=== PATIENT | male | born 1970 | race African-American/Black ===

== ENCOUNTER 2020-10-01 10:52 | Emergency (ER) | payer MEDICAID ==
[~2020-10-01] VITALS: Ht 170.2 cm; Wt 91.8 kg
[2020-10-01] MEDS ORDERED: AMOXICILLIN 50500 MG PO (11:21)
[2020-10-01] MEDS ORDERED: NORCO 325 MG-51 TAB PO (11:21)
[2020-10-01 11:31] VITALS: BP 134/82; PULSE 80; TEMP 98.3
== END 2020-10-01 11:31 | disposition home or self-care (01) ==
LOC: COL.ER 10:52
DX: K08.89 Other specified disorders of teeth and supporting structures (principal)

== ENCOUNTER 2020-10-09 15:56 | Emergency (ER) | payer MEDICAID ==
[~2020-10-09] VITALS: Ht 170.2 cm; Wt 91.4 kg
[~2020-10-09 15:56] MED LIST: AMOXICILLIN 50500 MG PO; NORCO 325 MG-51 TAB PO
[2020-10-09 16:01] VITALS: BP 131/87; PULSE 87; TEMP 97.3
[2020-10-09] MEDS ORDERED: TYLENOL 325MG325 MG PO (16:43)
[2020-10-09] MEDS ORDERED: ROXICODONE 55 MG/TAB PO (16:43)
[2020-10-09] MEDS ORDERED: MOTRIN 400400 MG/TAB PO (16:43)
== END 2020-10-09 16:54 | disposition home or self-care (01) ==
LOC: COL.ER 15:56
DX: K08.89 Other specified disorders of teeth and supporting structures (principal)

== ENCOUNTER 2020-12-13 11:03 | Emergency (ER) | payer MEDICAID ==
[~2020-12-13] VITALS: Ht 167.6 cm; Wt 90.9 kg
[~2020-12-13 11:03] MED LIST changes: +MOTRIN 400400 MG/TAB PO; +ROXICODONE 55 MG/TAB PO; +TYLENOL 325MG325 MG PO
[2020-12-13 11:14] VITALS: BP 121/82; TEMP 97.9
[2020-12-13] MEDS ORDERED: NORCO 325 MG-51 TAB PO (11:37)
[2020-12-13 11:58] VITALS: PULSE 78
== END 2020-12-13 11:58 | disposition home or self-care (01) ==
LOC: COL.ER 11:03
DX: M25.572 Pain in left ankle and joints of left foot (principal); G89.29 Other chronic pain; M94.0 Chondrocostal junction syndrome [Tietze]

== ENCOUNTER 2021-02-18 13:52 | Emergency (ER) | payer MEDICAID ==
[~2021-02-18] VITALS: Ht 167.6 cm; Wt 90.9 kg
[2021-02-18 14:04] VITALS: TEMP 98.7
[2021-02-18 15:20] VITALS: BP 128/74; PULSE 84
== END 2021-02-18 15:21 | disposition home or self-care (01) ==
LOC: COL.ER 13:52
DX: U07.1 COVID-19 (principal)

== ENCOUNTER 2021-03-03 20:04 | Emergency (ER) | payer MEDICAID ==
[~2021-03-03] VITALS: Ht 167.6 cm; Wt 90.9 kg
[2021-03-03 21:52] LABS: BASO % 0.8 % (0.0-2.0); EOS # 0.1 (0.0-0.7); EOS % 2.1 % (0-4.0); GRAN # 1.9 (1.4-6.5); GRAN % 48.9 % (42.2-75.2); HEMATOCRIT 46.8 % (42.0-52.0); HEMOGLOBIN 16.2 g/dl (13.5-18.0); LYMPH # 1.3 (1.2-3.4); LYMPH % 33.9 % (20.0-51.0); MEAN CELL VOLUME 79 fl (80.0-100.0); MEAN CORPUSCULAR HEMOGLOBIN 27 pg (27.0-31.0); MEAN CORPUSCULAR HGB CONC 35 g/dl (33.0-37.0); MEAN PLATELET VOLUME 12.6 fl (7.4-10.4); MONO # 0.5 (0.1-0.6); PLATELET COUNT 195 K/mm3 (130-400); RED BLOOD COUNT 5.93 M/mm3 (4.20-5.60); REDCELL DISTRIBUTION WIDTH-CV 13.2 % (11.5-14.5)
[2021-03-03 22:32] LABS: ALANINE AMINOTRANSFERASE 51 U/L (4-49); ALBUMIN 4.1 gm/dL (3.5-5.0); ALKALINE PHOSPHATASE 67 U/L (50-136); ANION GAP 5 mmol/L (7-16); AST,SGOT 48 U/L (15-37); BILIRUBIN,TOTAL 0.4 mg/dL (0.0-1.0); BLOOD UREA NITROGEN 23 mg/dL (9-20); C-REACTIVE PROTEIN 0.6 mg/dL (0.0-0.9); CALCIUM 8.4 mg/dL (8.4-10.2); CARBON DIOXIDE 25 mmol/L (22-30); CHLORIDE 106 mmol/L (98-107); CREATINE KINASE 598 U/L (55-170); CREATININE, serum 1.28 (0.66-1.25); GLUCOSE 94 mg/dL (74-106); POTASSIUM 3.8 mmol/L (3.4-5.0); SODIUM 136 mmol/L (137-145); TOTAL PROTEIN 7.2 gm/dL (6.4-8.2)
[2021-03-03 22:49] LABS: TROPONIN-I < 0.012 ng/mL (0.000-0.035)
[2021-03-03 23:32] LABS: COLLECTION METHOD CLEAN CATCH
[2021-03-03 23:40] LABS: PH 5 (5-8); SQUAMOUS EPITHELIAL 0-2 /hpf; URINE APPEARANCE Clear; URINE BACTERIA None Seen /hpf; URINE BILIRUBIN Negative (NEGATIVE); URINE BLOOD Negative (NEGATIVE); URINE COLOR Yellow; URINE GLUCOSE Negative (NEGATIVE); URINE KETONE Negative (NEGATIVE); URINE LEUKOCYTE ESTERASE Negative (NEGATIVE); URINE NITRATE Negative (NEGATIVE); URINE PROTEIN(semi-quant) Negative (NEGATIVE); URINE RBC 0-2 /hpf
[2021-03-04 01:09] VITALS: BP 110/74; PULSE 68; TEMP 97.9
== END 2021-03-04 01:09 | disposition home or self-care (01) ==
LOC: COL.ER 20:04
PROVIDERS: Nurse Practitioner
DX: R07.89 Other chest pain (principal); Z86.16 Personal history of COVID-19
CPT/HCPCS: J7030; Q9967

== ENCOUNTER 2021-04-15 17:31 | Emergency (ER) | payer MEDICAID ==
[~2021-04-15] VITALS: Ht 170.2 cm; Wt 93.2 kg
[2021-04-15 17:47] VITALS: TEMP 98
[2021-04-15] MEDS ORDERED: FLEXERIL 1010 MG/TAB PO (18:36)
[2021-04-15] MEDS ORDERED: MEDROL 4MG DOSPA4 MG PO (18:36)
[2021-04-15] MEDS ORDERED: LIDODERM 5% PATC1 EA TP (18:37)
[2021-04-15 18:41] VITALS: BP 135/91; PULSE 73
== END 2021-04-15 18:41 | disposition home or self-care (01) ==
LOC: COL.ER 17:31
DX: S39.012A Strain of muscle, fascia and tendon of lower back, initial encounter (principal); X50.9XXA Other and unspecified overexertion or strenuous movements or postures, initial encounter
CPT/HCPCS: J1885; J2360

== ENCOUNTER 2021-07-02 17:18 | Emergency (ER) | payer MEDICAID ==
[~2021-07-02] VITALS: Ht 170.2 cm; Wt 90.9 kg
[~2021-07-02 17:18] MED LIST changes: +FLEXERIL 1010 MG/TAB PO; +LIDODERM 5% PATC1 EA TP; +MEDROL 4MG DOSPA4 MG PO
[2021-07-02 17:32] VITALS: TEMP 100
[2021-07-02] MEDS ORDERED: CRUTCHES MC (18:32)
[2021-07-02] MEDS ORDERED: NORCO 325 MG-7.1 TAB PO (18:34)
[2021-07-02 19:03] VITALS: BP 114/87; PULSE 72
== END 2021-07-02 19:03 | disposition home or self-care (01) ==
LOC: COL.ER 17:18
DX: S89.92XA Unspecified injury of left lower leg, initial encounter (principal); X50.1XXA Overexertion from prolonged static or awkward postures, initial encounter; Y93.67 Activity, basketball
CPT/HCPCS: L1846

== ENCOUNTER 2021-07-05 05:59 | Day surgery (SDC) | payer MEDICAID ==
[~2021-07-05] VITALS: Ht 170.2 cm; Wt 92.7 kg
[~2021-07-05 05:59] MED LIST changes: +CRUTCHES MC; +NORCO 325 MG-7.1 TAB PO
[2021-07-05 06:23] VITALS: BP 117/82; PULSE 59; TEMP 98
[2021-07-05] MEDS ORDERED: ALEVE 220MG220 MG PO (06:23)
[2021-07-05] MEDS ORDERED: NORCO 325 MG-51 TAB PO (11:00)
[2021-07-05] MEDS ORDERED: MOTRIN 600600 MG/TAB PO (11:01)
[2021-07-05 11:15] VITALS: BP 93/61; PULSE 59; TEMP 97.4
--- NOTE | 2021-07-05 11:15 | NUR ---
Patient arrives to [facility] [place] [facility] via cart, accompanied by PROPOSAL ANALYST Theresa. He is alert, oriented, sitting up in bed. PIV to TKO. Monitoring is applied - VSS and WNL on room air. He denies any pain or nausea. He has three surgical incisions that are clean/dry/intact on his abdomen. His friend is at the bedside.
[2021-07-05 11:30] VITALS: BP 102/65; PULSE 68
--- NOTE | 2021-07-05 11:30 | NUR ---
VSS on room air. Eating a muffin and drinking juice. Tolerating PO well.
[2021-07-05 11:45] VITALS: BP 104/64; PULSE 65
--- NOTE | 2021-07-05 11:45 | NUR ---
VSS on room air. Denies pain, nausea, or need.
--- NOTE | 2021-07-05 12:00 | NUR ---
Patient ambulates to the restroom, voids, and returns to room.
--- NOTE | 2021-07-05 12:29 | NUR ---
Patient has met discharge criteria. Discharge instructions are discussed. He denies any questions and verbalizes understanding. PIV is removed with catheter intact and hemostasis achieved. He changes to his clothing independently. He is escorted to the exit via wheelchair by staff. He is discharged to the care of his friend, who drives him home in a private vehicle at 1229.
== END 2021-07-05 12:29 | disposition home or self-care (01) ==
LOC: SDCO 05:59
DX: K42.9 Umbilical hernia without obstruction or gangrene (principal); M54.31 Sciatica, right side; Z86.16 Personal history of COVID-19; Z79.899 Other long term (current) drug therapy
CPT/HCPCS: C1781; J0690; J1100; J1885; J2405; J2704; J3010; J7120